=== PATIENT | female | born 1950 | race Caucasian/White ===

== ENCOUNTER 2020-05-17 13:58 | Inpatient (IN) | payer OTHER ==
[~2020-05-17] VITALS: Ht 160 cm; Wt 90.3 kg
[2020-05-17] MEDS ORDERED: FUROSEMIDE 20 MG/2 ML VIAL IVP ONE (14:15)
[2020-05-17] MEDS ORDERED: DILTIAZEM HCL 25 MG IV IV ONE ×2 (14:15→18:30)
[2020-05-17 14:25] LABS: BASOPHILS # (AUTO) 0.1 K/uL (0.0-8.0); BASOPHILS % (AUTO) 0.8 % (0.0-2.0); EOSINOPHILS # (AUTO) 0.1 K/uL (0.0-0.7); EOSINOPHILS % (AUTO) 0.7 % (0.0-7.0); HEMATOCRIT 35.9 % (31.2-41.9); HEMOGLOBIN 11.6 g/dL (10.9-14.3); LYMPHOCYTES # (AUTO) 1.8 K/uL (20.0-40.0); LYMPHOCYTES % (AUTO) 19.6 % (20.5-51.5); MEAN CORPUSCULAR HEMOGLOBIN 25.1 uug (24.7-32.8); MEAN CORPUSCULAR HGB CONC 32 g/dL (32.3-35.6); MEAN CORPUSCULAR VOLUME 77.6 fL (75.5-95.3); MONOCYTES # (AUTO) 0.8 K/uL (2.0-10.0); NEUTROPHILS # (AUTO) 6.7 K/uL (1.8-8.9); NEUTROPHILS % (AUTO) 70.9 % (38.5-71.5); PLATELET COUNT (AUTO) 174 K/uL (179-408); RED BLOOD CELL COUNT(AUTO) 4.63 MIL/uL (3.63-4.92); WHITE BLOOD COUNT (AUTO) 9.5 K/uL (3.8-11.8)
[2020-05-17] MEDS ORDERED: POTA10TA10 PO (14:27)
[2020-05-17] MEDS ORDERED: VALS40TA4 PO (14:27)
[2020-05-17] MEDS ORDERED: ATOR10TA PO (14:27)
[2020-05-17] MEDS ORDERED: APIX5TAB4 PO (14:27)
[2020-05-17] MEDS ORDERED: METO-358 PO (14:27)
[2020-05-17] MEDS ORDERED: DIGO125T PO (14:27)
[2020-05-17] MEDS ORDERED: ISOS60TA72 PO (14:27)
[2020-05-17] MEDS ORDERED: BUME1TAB8 PO (14:27)
[2020-05-17 14:29] LABS: CREATININE 1.3 mg/dL (0.6-1.3); POTASSIUM 3.9 mmol/L (3.5-5.1)
[2020-05-17] MEDS ORDERED: FUROSEMIDE 40 MG/4 ML VIAL ONE (14:29)
[2020-05-17] MEDS ORDERED: DILTIAZEM HCL 25 MG IV ONE (14:29)
--- NOTE | 2020-05-17 14:34 | NUR ---
PT IS IN ROOM #1B. DR JACOBO EVALUATED THE PT.
[2020-05-17 14:35] LABS: BILIRUBIN,DIRECT 0.3 mg/dL (0.0-0.2); BILIRUBIN,TOTAL 0.8 mg/dL (0.2-1.0); TOTAL PROTEIN, SERUM 6.6 g/dL (6.4-8.2)
--- NOTE | 2020-05-17 18:47 | NUR ---
REPORT WAS GIVEN TO YOLK SPRAY DRIER. PT WAS TRANSFERED TO ROOM #316.
--- NOTE | 2020-05-17 18:48 | NUR ---
Patient received from ER. Report given by Manny. Patient is awake, alert and oriented times 4. No sign of distress noted. Patient is on 2L of oxygen. IV in the right forearm 22 gauge heplock. Initial vitals taken. ID band is on patient. Safety precautions are in place. Will endorse to oncoming nurse
[2020-05-17 18:55] VITALS: BP 136/80
[2020-05-17 19:00] VITALS: BP 136/92
--- NOTE | 2020-05-17 19:00 | NUR ---
Patient placed on property assessment monitor. Shows Rapid AFIB with RVR. Made MD aware. Telephone order given for 10mg Cardizem now and 5mg drip no titration. Also to transfer patient to higher level of care. Readback completed. Called to given report to CCU nurse. Nurse said not ready to receive report.
[2020-05-17] MEDS ORDERED: DILTIAZEM HCL 25 MG IV IV STA (19:07)
[2020-05-17] MEDS ORDERED: DILTIAZEM HCL IV 125 MG in IV NORMAL SALINE 100 ML IV PRN ×2 (19:15→20:15)
--- NOTE | 2020-05-17 19:20 | NUR ---
received and report from nurse on the 3rd floor , patient is awake , oriented able to follow command , denies pain , on 3 l nc , incontinent , 18 ga rac iv intact , hr of 126, bp 136 / 92 100% oxygen saturation rr 27, temp 98.4
--- NOTE | 2020-05-17 19:45 | NUR ---
Report given to Angeles in CCU. All orders placed in the eMAR. Endorsement completed to the CCU nurse.
[2020-05-17 20:00] VITALS: BP 145/91
[2020-05-17] MEDS ORDERED: ZOLPIDEM 5 MG TABLET PO PRN (20:00)
[2020-05-17] MEDS ORDERED: Z GUARD REMEDY PASTE 57 GM TUBE TOP PRN (20:00)
[2020-05-17] MEDS ORDERED: ACETAMINOPHEN 325 MG TABLET PO PRN (20:00)
[2020-05-17] MEDS ORDERED: BUMETANIDE 1 MG/4 ML VIAL IV ONE (20:00)
[2020-05-17] MEDS ORDERED: ONDANSETRON 4 MG/2 ML VIAL IV PRN (20:00)
[2020-05-17] MEDS: APIXABAN 5 MG TABLET PO SCH (20:41)
[2020-05-17 21:00] VITALS: BP 139/95
[2020-05-17] MEDS ORDERED: APIXABAN 2.5 MG TABLET PO SCH (21:00)
[2020-05-17] MEDS ORDERED: METOPROLOL TARTRATE 50 MG TABLET PO SCH (21:00)
[2020-05-17 22:00] VITALS: BP 121/72
--- NOTE | 2020-05-17 22:00 | NUR ---
lainez catheter insertion offered refused
[2020-05-17 23:00] VITALS: BP 124/72
[2020-05-18] VITALS (15 sets, daily range): BP systolic 92–137; BP diastolic 42–90
--- NOTE | 2020-05-18 02:30 | NUR ---
doctor notified of troponin levels , no orders received
[2020-05-18 04:59] LABS: BASOPHILS # (AUTO) 0.1 K/uL (0.0-8.0); BASOPHILS % (AUTO) 1.3 % (0.0-2.0); EOSINOPHILS # (AUTO) 0.1 K/uL (0.0-0.7); EOSINOPHILS % (AUTO) 1.1 % (0.0-7.0); HEMATOCRIT 31.7 % (31.2-41.9); HEMOGLOBIN 10.4 g/dL (10.9-14.3); LYMPHOCYTES # (AUTO) 1.7 K/uL (20.0-40.0); LYMPHOCYTES % (AUTO) 23.4 % (20.5-51.5); MEAN CORPUSCULAR HEMOGLOBIN 25.3 uug (24.7-32.8); MEAN CORPUSCULAR HGB CONC 33 g/dL (32.3-35.6); MONOCYTES # (AUTO) 0.6 K/uL (2.0-10.0); MONOCYTES % (AUTO) 8.5 % (0.0-11.0); NEUTROPHILS # (AUTO) 4.8 K/uL (1.8-8.9); NEUTROPHILS % (AUTO) 65.7 % (38.5-71.5); PLATELET COUNT (AUTO) 143 K/uL (179-408); RED BLOOD CELL COUNT(AUTO) 4.12 MIL/uL (3.63-4.92); WHITE BLOOD COUNT (AUTO) 7.3 K/uL (3.8-11.8)
[2020-05-18 05:16] LABS: BILIRUBIN,TOTAL 1.1 mg/dL (0.2-1.0); CREATININE 1.2 mg/dL (0.6-1.3); PHOSPHOROUS 4.9 mg/dL (2.5-4.9); POTASSIUM 3.5 mmol/L (3.5-5.1); TOTAL PROTEIN, SERUM 5.6 g/dL (6.4-8.2)
[2020-05-18 05:25] LABS: THYROID STIMULATING HORMONE 2.244 mIU/mL (0.358-3.740)
[2020-05-18] MEDS: PANTOPRAZOLE SODIUM 40 MG TABLET.DR PO SCH (05:58)
--- NOTE | 2020-05-18 06:23 | NUR ---
dr rodriguez is here to see patient , new medications ordered , talked to the family , regarding history and plans
[2020-05-18] MEDS: METOPROLOL TARTRATE 50 MG TABLET PO SCH ×2 (06:26→18:26)
--- NOTE | 2020-05-18 06:27 | NUR ---
dr rodriguez ordered new dosage of lopressor to be given first dose now , no distress , on cardizem drip at 5 mg , oxygen saturation 3 l nc , incontinent iv intact
--- NOTE | 2020-05-18 08:00 | NUR ---
DAY HABILITATION SPECIALIST USED FOR TO INFORM PATIENT OF SQUIRES CATHETER INSERTION. AND PATIENT WILL BE TAKING MEDICATION FOR DIURESING, ACCURATE I AND O NEEDS TO BE MAINTAINED.
[2020-05-18] MEDS ORDERED: BUMETANIDE 1 MG TABLET PO SCH (09:00)
[2020-05-18] MEDS ORDERED: ISOSORBIDE MONONITRATE 60 MG TAB.SR.24H PO SCH (09:00)
[2020-05-18] MEDS ORDERED: DIGOXIN 125 MCG TABLET PO SCH (09:00)
[2020-05-18] MEDS ORDERED: VALSARTAN 40 MG TABLET PO SCH (09:00)
[2020-05-18] MEDS: POTASSIUM CHLORIDE 10 MEQ TAB.PRT.SR PO SCH (09:34)
[2020-05-18] MEDS: APIXABAN 5 MG TABLET PO SCH ×2 (09:35→20:43)
[2020-05-18] MEDS: ISOSORBIDE MONONITRATE 30 MG TAB.SR.24H PO SCH (09:42)
[2020-05-18] MEDS: BUMETANIDE 1 MG/4 ML VIAL IV SCH ×2 (10:22→17:39)
--- NOTE | 2020-05-18 11:00 | NUR ---
PERRI CANCINO IN THE UNIT. DC CARDIZEM DRIP AFTER GIVING IV DIGOXIN. WHEN PATIENT DIURESES CAN DOWN GRADE TO TELE TODAY.
[2020-05-18] MEDS ORDERED: DIGOXIN 500 MCG/2 ML AMP IV ONE (11:15)
--- NOTE | 2020-05-18 18:09 | NUR ---
Called Dr. Hensley. patient complaining of chest pain. vitals stable at this time, 2nd dose of bumex given, ordered trop and ekg. Dr Lizarraga ordered to give metroprolol evening dose now.
--- NOTE | 2020-05-18 18:16 | NUR ---
OK TO STILL DOWNGRADE PER DR STEVENS.
[2020-05-18] MEDS: ATORVASTATIN 10 MG TABLET PO SCH (18:25)
[2020-05-18] MEDS: IV NORMAL SALINE 250 ML IV PRN (19:00)
--- NOTE | 2020-05-18 19:00 | NUR ---
Received patient from AM nurse. Patient is Farsi speaking and fully Alert & Orientated. Patient is AFib with a rate of 110 at this moment on monitor. No reports of chest pain. Patient is on 3L Nasal Canula and is saturating very well - no SOB, lung sounds clear. Cantor draining to gravity and patient is producing clear/yellow urine - currently being Diuresed (Bumex 2mg). Safety measures in place.
[2020-05-18 21:19] LABS: *BILIRUBIN,URIN NEGATIVE (NEGATIVE); *BLOOD, URINE NEGATIVE (NEGATIVE); *CLARITY,URINE CLEAR (CLEAR); *COLOR,URINE YELLOW (YELLOW); *KETONES,URINE NEGATIVE (NEGATIVE); *UROBILINOGEN,URINE 0.2 E.U./dl (NORMAL); LEUKOCYTE ESTERASE ,URINE NEGATIVE (NEGATIVE); NITRITE, URINE NEGATIVE (NEGATIVE); UGLUCOSE NEGATIVE (NEGATIVE)
[2020-05-19] VITALS (11 sets, daily range): BP systolic 92–139; BP diastolic 53–85
[2020-05-19 05:06] LABS: BASOPHILS # (AUTO) 0.1 K/uL (0.0-8.0); BASOPHILS % (AUTO) 0.9 % (0.0-2.0); EOSINOPHILS # (AUTO) 0.1 K/uL (0.0-0.7); EOSINOPHILS % (AUTO) 1.7 % (0.0-7.0); HEMOGLOBIN 10.4 g/dL (10.9-14.3); LYMPHOCYTES # (AUTO) 1.9 K/uL (20.0-40.0); LYMPHOCYTES % (AUTO) 21.9 % (20.5-51.5); MEAN CORPUSCULAR HEMOGLOBIN 25.1 uug (24.7-32.8); MEAN CORPUSCULAR HGB CONC 32 g/dL (32.3-35.6); MEAN CORPUSCULAR VOLUME 77.4 fL (75.5-95.3); MONOCYTES # (AUTO) 0.6 K/uL (2.0-10.0); MONOCYTES % (AUTO) 7.4 % (0.0-11.0); NEUTROPHILS # (AUTO) 5.8 K/uL (1.8-8.9); NEUTROPHILS % (AUTO) 68.1 % (38.5-71.5); PLATELET COUNT (AUTO) 167 K/uL (179-408); RED BLOOD CELL COUNT(AUTO) 4.14 MIL/uL (3.63-4.92); WHITE BLOOD COUNT (AUTO) 8.5 K/uL (3.8-11.8)
[2020-05-19 05:12] LABS: CREATININE 1.2 mg/dL (0.6-1.3); MAGNESIUM 1.9 mg/dL (1.8-2.4); POTASSIUM 3.4 mmol/L (3.5-5.1)
[2020-05-19] MEDS ORDERED: POTASSIUM CHLORIDE 20 MEQ POWDER PACKET PO ONE (06:00)
[2020-05-19] MEDS: IV NORMAL SALINE 250 ML IV PRN (06:36)
[2020-05-19] MEDS: PANTOPRAZOLE SODIUM 40 MG TABLET.DR PO SCH (06:36)
--- NOTE | 2020-05-19 07:30 | NUR ---
received pt in bed, awake, alert and verbally responsive. pt farsy speaking but able to understand very little tajik. pt is controlled Afib on the monitor. pt on 3L oxygen via NC. Cantor cath in place. RAC peripheral IV 18g patent running TKO @5ml/hr.
[2020-05-19] MEDS ORDERED: DIGOXIN 500 MCG/2 ML AMP IV ONE (07:45)
--- NOTE | 2020-05-19 07:45 | NUR ---
Cardio Dr. Lizarraga in the unit to see and assess pt, with new orders. full report given
[2020-05-19] MEDS: POTASSIUM CHLORIDE 50 ML IV SCH ×2 (07:54→09:14)
[2020-05-19] MEDS: APIXABAN 5 MG TABLET PO SCH ×2 (08:00→20:21)
[2020-05-19] MEDS: POTASSIUM CHLORIDE 10 MEQ TAB.PRT.SR PO SCH (08:00)
[2020-05-19] MEDS: ISOSORBIDE MONONITRATE 30 MG TAB.SR.24H PO SCH (08:08)
[2020-05-19] MEDS: METOPROLOL SUCCINATE XL 50 MG TAB.SR.24H PO SCH ×2 (08:17→20:20)
[2020-05-19] MEDS: BUMETANIDE 1 MG/4 ML VIAL IV SCH ×2 (08:19→17:24)
--- NOTE | 2020-05-19 10:37 | NUR ---
pt will be transferred to tele. full report given to YOLANDE Jones.
--- NOTE | 2020-05-19 12:27 | NUR ---
pt picked up by tele nurse. left in stable condition
--- NOTE | 2020-05-19 12:54 | NUR ---
RECEIVED PATIENT FROM CCU. VSS. AOx4, FARSI SPEAKING. NO S/S OF DISTRESS OR SOB NOTED AT THIS TIME. SQUIRES CATHETER, PATENT AND DRAINING WELL. LUNCH TRAY AT BEDSIDE. BELONGINGS AT BEDSIDE, INVENTORY LIST CHECKED. ALL BELONGINGS ACCOUNTED FOR. WILL CONTINUE TO MONITOR.
--- NOTE | 2020-05-19 17:21 | NUR ---
AT BEDSIDE WITH ASA LAGOS, PATIENT REQUESTED FOR SQUIRES TO BE REMOVED SO SHE CAN GO TO THE BATHROOM BY HERSELF. NOTIFIED DNP. ALSO, PATIENT UPSET ABOUT HAVING A MALE DOG WARDEN. ENDORSED TO CHARGE NURSE ABOUT PATIENT REQUEST OF HAVING A FEMALE DOG WARDEN. WILL CONTINUE TO MONITOR.
[2020-05-19] MEDS: ATORVASTATIN 10 MG TABLET PO SCH (17:43)
--- NOTE | 2020-05-19 18:30 | NUR ---
WENT TO PATIENT'S ROOM TO REMOVE SQUIRES. PATIENT POINTED AT HER SQUIRES, MIMICKED MOTION OF SQUIRES REMOVAL AND SAID "TOMORROW." WILL NOTIFY MD AND ENDORSE TO ONCOMING SHIFT.
--- NOTE | 2020-05-19 20:00 | NUR ---
Received patient resting in bed. AAOx4 Farsi Speaking. Able to make needs known. No s/s of acute distress noted at this time. Tele monitor in place, displaying sinus tach HR 110. Pt denies SOB, 3L O2 via NC O2 @ 99%. Cantor in place draining via gravity. Right AC IV patent and intact. Safety measures in place.
[2020-05-20 00:16] VITALS: BP 124/84
[2020-05-20] MEDS: BUMETANIDE 1 MG/4 ML VIAL IV SCH ×3 (01:33→17:11)
[2020-05-20 04:28] VITALS: BP 131/79
[2020-05-20] MEDS: PANTOPRAZOLE SODIUM 40 MG TABLET.DR PO SCH (06:44)
[2020-05-20 06:51] LABS: BASOPHILS # (AUTO) 0.1 K/uL (0.0-8.0); BASOPHILS % (AUTO) 0.7 % (0.0-2.0); EOSINOPHILS # (AUTO) 0.2 K/uL (0.0-0.7); EOSINOPHILS % (AUTO) 1.9 % (0.0-7.0); HEMATOCRIT 35.4 % (31.2-41.9); HEMOGLOBIN 11.5 g/dL (10.9-14.3); LYMPHOCYTES # (AUTO) 1.7 K/uL (20.0-40.0); LYMPHOCYTES % (AUTO) 20.1 % (20.5-51.5); MEAN CORPUSCULAR HEMOGLOBIN 25.1 uug (24.7-32.8); MEAN CORPUSCULAR HGB CONC 32 g/dL (32.3-35.6); MEAN CORPUSCULAR VOLUME 77.5 fL (75.5-95.3); MONOCYTES # (AUTO) 0.6 K/uL (2.0-10.0); MONOCYTES % (AUTO) 7.8 % (0.0-11.0); NEUTROPHILS # (AUTO) 5.8 K/uL (1.8-8.9); NEUTROPHILS % (AUTO) 69.5 % (38.5-71.5); PLATELET COUNT (AUTO) 149 K/uL (179-408); RED BLOOD CELL COUNT(AUTO) 4.57 MIL/uL (3.63-4.92); WHITE BLOOD COUNT (AUTO) 8.3 K/uL (3.8-11.8)
[2020-05-20 07:05] LABS: MAGNESIUM 1.6 mg/dL (1.8-2.4); PHOSPHOROUS 3.5 mg/dL (2.5-4.9); POTASSIUM 3.1 mmol/L (3.5-5.1)
[2020-05-20] MEDS ORDERED: POTASSIUM CHLORIDE 20 MEQ POWDER PACKET PO ONE (07:30)
[2020-05-20] MEDS: MAGNESIUM SULFATE/D5W 100 ML IV SCH ×4 (08:18→11:38)
[2020-05-20] MEDS: POTASSIUM CHLORIDE 10 MEQ TAB.PRT.SR PO SCH (09:23)
[2020-05-20] MEDS: DIGOXIN 125 MCG TABLET PO SCH (09:28)
[2020-05-20] MEDS: APIXABAN 5 MG TABLET PO SCH ×2 (09:28→20:01)
[2020-05-20] MEDS: METOPROLOL SUCCINATE XL 50 MG TAB.SR.24H PO SCH ×2 (09:29→20:02)
[2020-05-20] MEDS: ISOSORBIDE MONONITRATE 30 MG TAB.SR.24H PO SCH (09:29)
[2020-05-20 12:21] VITALS: BP 133/74
[2020-05-20] MEDS: DILTIAZEM HCL CD 180 MG CAP.SR.24H PO SCH (12:36)
[2020-05-20] MEDS: POTASSIUM CHLORIDE 50 ML IV SCH ×4 (12:37→16:54)
[2020-05-20] MEDS: ATORVASTATIN 10 MG TABLET PO SCH (17:10)
--- NOTE | 2020-05-20 19:30 | NUR ---
Received patient lying in bed. AAOx4, mainly Farsi speaking. In no acute distress. Denies any pain or SOB. On O2 aT 3lpm VIA nc in place. O2 sat at 99%. Controlled A. fib on tele at 68/min. IV site on right AC intact and patent. Cantor catheter intact and draining via gravity. Safety measure initiated and call dias within reached.
[2020-05-20 20:00] VITALS: BP 114/62
[2020-05-21] VITALS: BP 128/59
[2020-05-21 04:00] VITALS: BP 134/66
[2020-05-21] MEDS: PANTOPRAZOLE SODIUM 40 MG TABLET.DR PO SCH (06:05)
--- NOTE | 2020-05-21 06:12 | NUR ---
AAOx4. In no acute distress. Morphine 0.5mg IV given x1 for complain of chest pressure and effective. No further complain of chest pain. No SOB. IV site on right FA remains intact and patent. Needs attended to and met. Safety measure maintained and call dias within reached.
[2020-05-21 07:21] LABS: BASOPHILS % (AUTO) 0.5 % (0.0-2.0); EOSINOPHILS # (AUTO) 0.2 K/uL (0.0-0.7); EOSINOPHILS % (AUTO) 2.1 % (0.0-7.0); HEMOGLOBIN 11.3 g/dL (10.9-14.3); LYMPHOCYTES # (AUTO) 1.8 K/uL (20.0-40.0); MEAN CORPUSCULAR HEMOGLOBIN 25.1 uug (24.7-32.8); MEAN CORPUSCULAR HGB CONC 32 g/dL (32.3-35.6); MEAN CORPUSCULAR VOLUME 77.4 fL (75.5-95.3); MONOCYTES # (AUTO) 0.7 K/uL (2.0-10.0); MONOCYTES % (AUTO) 8.1 % (0.0-11.0); NEUTROPHILS # (AUTO) 5.9 K/uL (1.8-8.9); NEUTROPHILS % (AUTO) 68.3 % (38.5-71.5); PLATELET COUNT (AUTO) 159 K/uL (179-408); RED BLOOD CELL COUNT(AUTO) 4.52 MIL/uL (3.63-4.92); WHITE BLOOD COUNT (AUTO) 8.6 K/uL (3.8-11.8)
[2020-05-21 07:30] LABS: CREATININE 1.1 mg/dL (0.6-1.3); MAGNESIUM 2.1 mg/dL (1.8-2.4); PHOSPHOROUS 3.2 mg/dL (2.5-4.9); POTASSIUM 3.6 mmol/L (3.5-5.1)
--- NOTE | 2020-05-21 07:30 | NUR ---
Received patient in bed, Awake alert and oriented times 4. Patient is Farsi speaking. No sign sign of distress noted. Patient is currently in controlled AFIB rhythm. Patient is on 3 L of oxygen. Safety measure implemented. Will continue to monitor.
[2020-05-21] MEDS: BUMETANIDE 1 MG/4 ML VIAL IV SCH (08:47)
[2020-05-21] MEDS: POTASSIUM CHLORIDE 10 MEQ TAB.PRT.SR PO SCH (08:47)
[2020-05-21] MEDS: DIGOXIN 125 MCG TABLET PO SCH (08:48)
[2020-05-21] MEDS: DILTIAZEM HCL CD 180 MG CAP.SR.24H PO SCH (09:00)
[2020-05-21] MEDS: METOPROLOL SUCCINATE XL 50 MG TAB.SR.24H PO SCH (09:01)
[2020-05-21] MEDS: ISOSORBIDE MONONITRATE 30 MG TAB.SR.24H PO SCH (09:01)
[2020-05-21] MEDS: APIXABAN 5 MG TABLET PO SCH (09:02)
[2020-05-21 11:50] VITALS: BP 138/63
--- NOTE | 2020-05-21 14:00 | NUR ---
Patient Cantor removed. Tolerated well. Also oxygen removed and is saturating at 96%. Will continue to monitor for voiding.
[2020-05-21] MEDS ORDERED: PANT40TA2 PO (14:19)
[2020-05-21] MEDS ORDERED: METO-357 PO (14:19)
[2020-05-21 15:12] VITALS: BP 130/62
--- NOTE | 2020-05-21 16:30 | NUR ---
Patient has voided. Will proceed with discharge.
[2020-05-21] MEDS ORDERED: BUMETANIDE 1 MG TABLET PO SCH (17:00)
[2020-05-21] MEDS: ATORVASTATIN 10 MG TABLET PO SCH (17:25)
--- NOTE | 2020-05-21 17:40 | NUR ---
Patient discharged to home. Patient is stable, no sign of distress noted. All medications given as ordered. All paperwork signed and copies given to the patient. All belongings given to patient and form signed. Patient teaching completed. Patient picked up in private vehicle by daughter Lanie.
== END 2020-05-21 17:55 | disposition home or self-care (01) | DRG 194 ==
LOC: ER 13:58 → TELE3 17:51 → TELE-TD3 19:14 → OBSER 19:28 → MED 19:41 → CCU 19:57 → TELE3 05-19 12:39
PROVIDERS: ADMIT Nurse Practitioner Acute Care; ATTEND Nurse Practitioner Acute Care
DX: I13.0 Hypertensive heart and chronic kidney disease with heart failure and stage 1 through stage 4 chronic kidney disease, or unspecified chronic kidney disease (principal); I48.20 Chronic atrial fibrillation, unspecified; I50.33 Acute on chronic diastolic (congestive) heart failure; N17.0 Acute kidney failure with tubular necrosis; D68.69 Other thrombophilia; I25.10 Atherosclerotic heart disease of native coronary artery without angina pectoris; Z91.19 Patient's noncompliance with other medical treatment and regimen; E78.5 Hyperlipidemia, unspecified; E83.42 Hypomagnesemia; E87.6 Hypokalemia; N18.9 Chronic kidney disease, unspecified; D69.6 Thrombocytopenia, unspecified; Z20.822 Contact with and (suspected) exposure to COVID-19; D69.59 Other secondary thrombocytopenia; Z79.01 Long term (current) use of anticoagulants; R73.9 Hyperglycemia, unspecified
CPT/HCPCS: 36415; 70030-TC; 71045; 83735; 84100; 84443; 85025; 85730; 93005; 93307; A4663; G0378; J1160; J1940; J3475; J3480; J3490; J7030; J7040; J7050; J7060

== ENCOUNTER 2020-12-07 18:16 | Emergency (ER) | payer OTHER ==
[~2020-12-07] VITALS: Ht 152.4 cm; Wt 83.9 kg
[~2020-12-07 18:16] MED LIST: APIX5TAB4 PO; ATOR10TA PO; BUME1TAB8 PO; DIGO125T PO; ISOS60TA72 PO; METO-357 PO; PANT40TA2 PO; POTA10TA10 PO
--- NOTE | 2020-12-07 18:30 | NUR ---
Pt and family unable to provide information about current home medications at this time.
[2020-12-07] MEDS ORDERED: DILTIAZEM HCL 25 MG IV IV ONE ×2 (18:45→21:00)
--- NOTE | 2020-12-07 19:05 | NUR ---
RECEIVED REPORT FROM YOLANDE VIADL. PT STABLE, DENIES ANY PAIN/DISCOMFORT AT THIS TIME.
--- NOTE | 2020-12-07 19:08 | NUR ---
pt to ct scan
[2020-12-07 19:14] LABS: HEMATOCRIT 36.8 % (31.2-41.9); MEAN CORPUSCULAR HEMOGLOBIN 24.5 uug (24.7-32.8); MEAN CORPUSCULAR VOLUME 76.5 fL (75.5-95.3); PLATELET COUNT (AUTO) 138 K/uL (179-408)
--- NOTE | 2020-12-07 19:15 | NUR ---
Raghu ramirez in ED - 12/07/[address] PT TAKEN TO CT.
--- NOTE | 2020-12-07 19:24 | NUR ---
PT RETURNED FROM CT. STABLE CONDITION.
[2020-12-07 19:35] LABS: CREATININE 1.3 mg/dL (0.6-1.3); POTASSIUM 3.8 mmol/L (3.5-5.1)
[2020-12-07 19:49] LABS: BILIRUBIN,DIRECT 0.3 mg/dL (0.0-0.2); BILIRUBIN,TOTAL 0.9 mg/dL (0.2-1.0); TOTAL PROTEIN, SERUM 6.9 g/dL (6.4-8.2)
[2020-12-07] MEDS ORDERED: FUROSEMIDE 40 MG/4 ML VIAL IV ONE (21:00)
[2020-12-07 21:10] VITALS: BP 142/92
[2020-12-07] MEDS ORDERED: DILTIAZEM HCL 25 MG IV ONE (21:14)
[2020-12-07] MEDS ORDERED: FUROSEMIDE 40 MG/4 ML VIAL ONE (21:14)
--- NOTE | 2020-12-07 22:00 | NUR ---
ASSISTED PT TO AMBULATE TO RESTROOM, STEADY GAIT. DENIES ANY PAIN/DISCOMFORT.
--- NOTE | 2020-12-08 | NUR ---
RECEIVED CALL FROM [facility], SPOKE WITH DA MARTINEZ. ROOM #:[id number] REPORT #: ACCEPTING MD: DR. SANCHEZ
--- NOTE | 2020-12-08 00:12 | NUR ---
CALLED [facility] SPOKE WITH SONIA AND ARRANGED FOR TRANSPO GIVEN ETA OF 90 MINS.
--- NOTE | 2020-12-08 00:44 | NUR ---
GAVE REPORT TO YOLANDE KWON IN [facility].
--- NOTE | 2020-12-08 01:39 | NUR ---
PT RESTING COMFORTABLY IN BED, EYES CLOSED, BREATHING EVEN AND UNLABORED.
--- NOTE | 2020-12-08 02:28 | NUR ---
[facility] UNIT 320 A BEDSIDE TO TRANSPORT PT TO [facility].
--- NOTE | 2020-12-08 02:32 | NUR ---
Patient Tranfers to outside Facility [facility] Physician: ABRAHAM Location: 531, TELE UNIT.
== END 2020-12-08 02:35 | disposition short-term general hospital (02) ==
LOC: ER 18:16
DX: I11.0 Hypertensive heart disease with heart failure (principal); I50.33 Acute on chronic diastolic (congestive) heart failure; Z20.822 Contact with and (suspected) exposure to COVID-19; I48.91 Unspecified atrial fibrillation; S09.90XA Unspecified injury of head, initial encounter; W01.190A Fall on same level from slipping, tripping and stumbling with subsequent striking against furniture, initial encounter; Y92.89 Other specified places as the place of occurrence of the external cause; E78.5 Hyperlipidemia, unspecified; I25.10 Atherosclerotic heart disease of native coronary artery without angina pectoris; D69.6 Thrombocytopenia, unspecified
CPT/HCPCS: 36415; 70450; 71045; 80048; 80076; 83880; 84484; 85025; 85379; 85730; 87426; 93005; 96374; 96375; 96376; 99285; J1940; J3490 ×2; 70030-TC; A4663